=== PATIENT | male | born 1945 | race Caucasian/White ===

== ENCOUNTER → 2018-10-23 07:57 | Day surgery (SDC) | payer MEDICARE ==
[~2018-10-23 07:57] MED LIST: Acetaminophen TAB* 325 MG PO PRN; Buffered Lidocaine 1% SYRIN* 1 ML/SYRINGE INTRADERM ONE; Bupivacaine 0.5%* 50 ML VIAL ONE; KETAMINE HCL* 50 MG/ML 10 ML VIAL ONE; Ketorolac INJ* 30 MG/ML 1 ML VIAL IV PRN; Lactated Ringers 1000 ML Bag* 1,000 ML IV SCH; Lidocaine 2% PF * 5 ML VIAL ONE; Lidocaine 2% PF* 10 ML AMP ONE; Midazolam* 1 MG/ML 2 ML VIAL (2 MG) ONE; Naloxone* 0.4 MG/ML 1 ML VIAL IV PRN; Ondansetron INJ* 2 MG/ML VIAL IV PRN; Propofol* 10 MG/ML 20 ML BTL ONE; ceFAZolin 2 GM PREMIX in ORs 2 GM/50 ML BAG IVPB ONE; fentaNYL* 50 MCG/ML 2 ML VIAL (100 MCG VIAL) IV PRN; fentaNYL* 50 MCG/ML 2 ML VIAL (100 MCG VIAL) ONE
[2018-10-23 13:19] VITALS: BP 118/72
--- NOTE | 2018-10-23 20:29 | OP ---
DATE OF OPERATION: 10/23/18 - [facility] DATE OF : 49 SURGEON: Martinez Chavis MD CONSULTING HR PROFESSIONAL: PAZ Pineda PRE-OP DIAGNOSIS: End-stage hallux rigidus, right first metatarsophalangeal joint. POST-OP DIAGNOSIS: End-stage hallux rigidus, right first metatarsophalangeal joint. OPERATIVE PROCEDURE: Right first MTP joint fusion with the Arthrex arthrodesis kit. DESCRIPTION OF PROCEDURE: The patient was taken to the operating room where we opened up over the dorsum of the first MTP joint. Mediolateral flap was opened and raised to allow visualization of the very large dorsal osteophyte and loose osteophyte off the base of the proximal phalanx. All of these were shaved and removed with a rongeur. We then used a 22 mm diameter ball and cup reamer to prepare the joint for arthrodesis. A 36 mm partially threaded screw was placed medial to lateral, proximal to distal with the toe in a neutral position. We then fashioned a longer right-sided Arthrex first MTP joint fusion plate that fit over the dorsum of the joint, fixing with a combination of locking and nonlocking screws. We then irrigated thoroughly, closing the capsule with Monocryl, subcu with Monocryl and nylon for the skin and a compression dressing applied. [id number]/[facility] #: [id number] [facility]Mary
== END | disposition home or self-care (01) ==
LOC: OR 07:57
PROVIDERS: ATTEND Orthopaedic Surgery
DX: M20.21 Hallux rigidus, right foot (principal); I10 Essential (primary) hypertension; E78.5 Hyperlipidemia, unspecified; G40.89 Other seizures
CPT/HCPCS: 76000; C1713; J0690; J2001; J2250; J2704; J3010

== ENCOUNTER 2019-12-06 18:17 | Emergency (ER) | payer MEDICARE ==
[2019-12-06] MEDS ORDERED: NS 0.9% 1000 ML** 1,000 ML IV ONE (18:35)
--- NOTE | 2019-12-06 18:35 | ED ---
Lower Extremity - HPI Summary HPI Summary: 74-year-old male with a significant past medical history of HTN, atrial fibrillation with a watchman device presents to the emergency department today Postoperative day 3 after right total knee arthroplasty done by Dr. Lucero at [place] with a chief complaint of 8 out of 10 right knee pain and swelling and warmth as well as fever. Patient states he has been febrile since discharge after his surgery and his knee pain has become worse. Patient states yesterday he fell on his knee which he believes may be related to his increase in pain. Patient has full range of motion of the right knee although he does this pain. There is no significant induration, erythema or other evidence of secondary infection of surgical site. Patient denies other symptoms such as chest pain, shortness of breath, cough, nasal congestion, sore throat, headache, abdominal pain, nausea, vomiting diarrhea. Patient is ambulatory at this time. Patient is neurovascularly intact. - History of Current Complaint Stated Complaint: FEVER/POST OP PER EMS Hx Obtained From: Patient Mechanism Of Injury: Other - Surgery Onset of Pain: Days Onset/Duration: Days Severity Initially: Severe Severity Currently: Severe Pain Scale Used: 0-10 Numeric Timing: Constant Location: Is Discrete @ - R knee Character Of Pain: Sharp, Aching Associated Signs And Symptoms: Positive: Swelling, Redness, Fever, Knee Pain Aggravating Factor(s): Standing, Ambulation, Movement, Weight Bearing Alleviating Factor(s): Rest Able to Bear Weight: Yes - Allergies/Home Medications Allergies/Adverse Reactions: Allergies Allergy/AdvReac Type Severity Reaction Status Date / Time morphine Allergy HIGH FEVER Verified 03/15/19 11:09 Home Medications: Home Medications Atorvastatin* [Lipitor 20 MG*] 20 mg PO QPM 06/11/13 [History Confirmed 12/06/19 ] Cholecalciferol (Vitamin D3) [Vitamin D3] 2,000 unit PO QPM 10/16/18 [History Confirmed 12/06/19] Cyanocobalamin TAB* [Vitamin B12 TAB*] 500 mcg PO QAM 10/16/18 [History Confirmed 12/06/19] Potassium Chlor TAB* [Klor Con ER TAB*] 10 meq PO QAM 10/16/18 [History Confirmed 12/06/19] amLODIPine TAB* [Norvasc 5 mg TAB*] 10 mg PO QAM 10/16/18 [History Confirmed ] Apixaban* [Eliquis*] 2.5 mg PO Q12H 11/23/19 [History Confirmed 12/06/19] Cyanocobalamin TAB* [Vitamin B12 TAB*] 1,000 mcg PO DAILY 11/23/19 [History Confirmed 12/06/19] Sildenafil Citrate [Viagra] 50 mg PO DAILY PRN 11/23/19 [History Confirmed 12/05] Vitamin D3/Vitamin K2 (Mk4) [K2 Plus D3 100-1000 Mcg-Unit] 1 tab PO DAILY [History Confirmed 12/06/19] Hydrochlorothiazide TAB* [Hydrodiuril TAB*] 25 mg PO DAILY 11/26/19 [History Confirmed 12/06/19] Irbesartan [Avapro] 300 mg PO DAILY 11/26/19 [History Confirmed 12/06/19] Cephalexin CAP* [Keflex CAP*] 500 mg PO QID #28 cap 12/06/19 [Rx] Oxycodone TAB(NF) [Oxycodone HCl 10 MG] 10 mg PO Q4HR PRN 12/06/19 [History Confirmed 12/06/19] PHENobarbital TAB(*) 60 mg PO QAM 12/06/19 [History Confirmed 12/06/19] PHENobarbital TAB(*) 120 mg PO BEDTIME 12/06/19 [History Confirmed 12/06/19] PMH/Surg Hx/FS Hx/Imm Hx Endocrine/Hematology History: Denies: Hx Diabetes Cardiovascular History: Reports: Hx Hypercholesterolemia, Hx Hypertension - ON MEDICATION FOR, Hx Syncope - this admission & X1 in the past. 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 SERGIO HOLES FOR HEMORRHAGIC CVA - NO IMPLANTS. CSP - FUSION/LAMINECTOMY. INGUINAL HERNIA REPAIR-40+ YEARS AGO. 10/2018 - Rt GREAT TOE - BUNIONECTOMY- W/ SCREW Hx Anesthesia Reactions: No Infectious Disease History: Denies: Traveled Outside the [place] in Last 30 Days - Social History Alcohol Use: Occasionally Alcohol Amount: 2-3 beer Substance Use Type: Reports: None Smoking Status (MU): Former Smoker Amount Used/How Often: 1 PPD X 5-6 YEARS Have You Smoked in the Last Year: No Review of Systems Positive: Fever Eyes: Negative ENT: Negative Cardiovascular: Negative Respiratory: Negative Gastrointestinal: Negative Genitourinary: Negative Positive: Arthralgia, Edema Positive: Bruising Neurological/Mental Status: Negative Psychological: Normal All Other Systems Reviewed And Are Negative: Yes Physical Exam - Summary Physical Exam Summary: Patient is in no acute distress. Inspection of the right knee shows erythema and edema and warmth. There is no significant induration or erythema noted. No evidence of purulent discharge. Patient has full range of motion of the right knee. Patient is neurovascularly intact. Patient was ambulatory. Triage Information Reviewed: Yes Vital Signs Reviewed: Yes Appearance: Positive: Well-Appearing, No Pain Distress, Well-Nourished Skin: Positive: Warm, Skin Color Reflects Adequate Perfusion Eyes: Positive: EOMI, MARIAM ENT: Positive: Hearing grossly normal Respiratory/Lung Sounds: Positive: Clear to Auscultation, Breath Sounds Present Cardiovascular: Positive: RRR, S1, S2 Abdomen Description: Positive: Nontender, Soft Bowel Sounds: Positive: Present Musculoskeletal: Positive: Strength/ROM Intact Neurological: Positive: Sensory/Motor Intact, Alert, Oriented to Person Place, Time, Facial Symmetry, Speech Normal Psychiatric: Positive: Normal, Affect/Mood Appropriate AVPU Assessment: Alert Procedures - Sedation Patient Received Moderate/Deep Sedation with Procedure: No Diagnostics - Laboratory Result Diagrams: 12/06/19 18:40 12/06/19 18:40 Lab Statement: Any lab studies that have been ordered have been reviewed, and results considered in the medical decision making process. Lower Extremity Course/Dx - Course Course Of Treatment: Patient was evaluated in the emergency department today for right knee pain postoperative day 3 for right total knee arthroplasty. Vitals noted. Patient has mildly febrile and tachycardic at approximately 122 bpm. patient has full range of motion of the right knee and physical exam was not suggestive of septic joint. Laboratory studies returned showing no leukocytosis with white blood cell count of 7.6. C-reactive protein is 189, ESR elevated at 65. There is mild anemia noted with an H&H of 11.3/32. These are acutely lower compared to previous studies done on 09/25/2019 with an H&H of 15.8/45. This is likely due to recent surgery. Coagulation studies returned nonconcerning. Patient is experiencing no significant electrolyte abnormalities. Chest x-ray shows no obvious pneumonia or atelectasis however there are lung nodules noted. X-ray of the right knee shows no evidence of fracture or implant displacement. Orthopedic doctor, Dr. Gutiérrez was consulted at 1950 was consulted at 1950 who did not believe the patient had a septic joint or was at risk of significant infection postoperatively. She requested patient to be placed on antibiotics and followed up in the outpatient clinic with his orthopedic doctor or in her clinic tomorrow. Patient discharged with outpatient follow-up. - Diagnoses Differential Diagnosis/HQI/PQRI: Positive: Arthritis, Fracture (Closed), Infection, Septic Arthritis Provider Diagnoses: Right knee pain, Fever Discharge ED - Sign-Out/Discharge Documenting (check all that apply): Patient Departure - Discharge Plan Condition: Stable Disposition: HOME Prescriptions: Cephalexin CAP* [Keflex CAP*] 500 mg PO QID #28 cap Patient Education Materials: Knee Pain (ED) Referrals: Milka Gutiérrez MD [Medical Doctor] - 1 Day Additional Instructions: You're seen in the emergency department today due to knee pain. There is no evidence of a septic joint at this time. Please follow-up with Dr. Lucero in his clinic tomorrow or with our orthopedic doctor Dr. Gutiérrez in her clinic tomorrow. Please take Keflex as directed. Please take ibuprofen and Tylenol for fever. Please return to activity as tolerated. Please return to this emergency department immediately should you develop any new or worsening symptoms. - Billing Disposition and Condition Condition: STABLE Disposition: Home - Attestation Statements Provider Attestation: I was available for consult. This patient was seen by the [facility]. The patient was not presented to, seen by, or examined by me. Garret Angelo MD
[2019-12-06 18:52] LABS: ABS Eosinophils 0.2 10^3/ul (0-0.6); ABS Lymphocytes 0.7 10^3/ul (1.0-4.8); ABS Monocytes 0.8 10^3/ul (0-0.8); ABS Neutrophils 5.9 10^3/ul (1.5-7.7); Eosinophil % 2.3 %; Hematocrit 32 % (42-52); Hemoglobin 11.3 g/dL (14.0-18.0); Lymphocyte % 9.7 %; Mean Corpuscular HGB Conc 35 g/dL (31-36); Mean Corpuscular Hemoglobin 35 pg (27-31); Mean Corpuscular Volume 100 fL (80-94); Mean Platelet Volume 8.4 fL (7.4-10.4); Platelet Count 207 10^3/uL (150-450); Red Blood Count 3.21 10^6 /uL (4.18-5.48); Red Cell Distribution Width 13 % (10-15); White Blood Count 7.6 10^3/uL (3.5-10.8)
[2019-12-06 19:00] LABS: Activated Partial Thrombo Time 30.8 seconds (26.0-38.0); INR 1.17 (0.82-1.09)
[2019-12-06] MEDS ORDERED: Ibuprofen TAB* 600 MG PO ONE (19:06)
[2019-12-06 19:09] LABS: Albumin 3.4 g/dL (3.2-5.2); Albumin/Globulin Ratio 1.2 (1-3); BUN/Creatinine Ratio 12.2 (8-20); C Reactive Protein 188.77 mg/L (<8.01); Calcium 8.8 mg/dL (8.6-10.3); EGFR African American 125.8 (>60); Globulin 2.8 g/dL (2-4); Potassium 3.7 mmol/L (3.5-5.0); Total Bilirubin 0.8 mg/dL (0.2-1.0); Total Protein 6.2 g/dL (6.4-8.9)
[2019-12-06] MEDS ORDERED: Cephalexin CAP* 500 MG PO ONE (19:50)
[2019-12-06 20:04] LABS: Erythrocyte Sed Rate 65 mm/Hr (0-19)
[2019-12-06 21:00] VITALS: BP 130/74
== END 2019-12-06 21:28 | disposition home or self-care (01) ==
LOC: ED 18:17
DX: M25.561 Pain in right knee (principal); R50.9 Fever, unspecified; I10 Essential (primary) hypertension; I48.91 Unspecified atrial fibrillation; Z98.890 Other specified postprocedural states; Z96.651 Presence of right artificial knee joint; Z88.6 Allergy status to analgesic agent; Z87.891 Personal history of nicotine dependence
CPT/HCPCS: 36415; 71046; 80053; 83605; 85025; 85610; 85652; 85730; 86140; 87040; 96360; 96361; 99283; A9270-GY